=== PATIENT | female | born 1990 | race African-American/Black ===

== ENCOUNTER 2023-02-15 10:17 | Emergency (ER) | payer OTHER ==
[2023-02-15 10:22] VITALS: BP 113/51; PULSE 91; RESP 18; TEMP 98.3; BMI 26.6
[2023-02-15] MEDS ORDERED: SODIUM CHLORIDE 1,000 ML IV ONE (10:46)
[2023-02-15 11:38] LABS: BASO % 0.8 % (0-2.0); EOS % 1.7 % (0-4.5); HEMATOCRIT 20.3 % (32.4-45.2); HEMOGLOBIN 7.4 GM/dL (10.7-15.3); LYMPH % 18.2 % (8-40); MCH 30.1 pg (25.7-33.7); MCHC 36.5 g/dl (32.0-36.0); MEAN CELL VOLUME 82.7 fl (80-96); MEAN PLT VOLUME 7.1 fl (7.5-11.1); MONO % 5.6 % (3.8-10.2); NEUT % 73.7 % (42.8-82.8); PLATELET COUNT 256 10^3/uL (134-434); RBC 2.46 M/mm3 (3.60-5.2); RDW 24.2 % (11.6-15.6); WHITE BLOOD COUNT 5.7 K/mm3 (4.0-10.0)
[2023-02-15 11:43] LABS: INR 1.16 (0.83-1.09); PROTHROMBIN TIME (PATIENT) 13.4 SEC (9.7-13.0)
[2023-02-15 11:46] LABS: ACTIVATED PTT 27.8 SECONDS (25.2-36.5); POTASSIUM 3.4 mmol/L (3.5-5.1)
[2023-02-15 11:47] LABS: BLOOD UREA NITROGEN 6.5 mg/dL (7-18); CALCIUM 8.9 mg/dL (8.5-10.1)
[2023-02-15 11:51] LABS: CREATININE 0.6 mg/dL (0.55-1.3)
[2023-02-15 12:15] LABS: ANISOCYTOSIS 1+; MACROCYTOSIS 1+
== END 2023-02-15 13:00 | disposition left against medical advice (07) ==
LOC: JER 10:17
PROC: 3E0337Z Introduction of Electrolytic and Water Balance Substance into Peripheral Vein, Percutaneous Approach (ICD-10-PCS; principal; 2023-02-15)
DX: O26.892 Other specified pregnancy related conditions, second trimester (principal); R10.30 Lower abdominal pain, unspecified; Z3A.15 15 weeks gestation of pregnancy
CPT/HCPCS: 36415; 76815-TC; 80048; 84702; 84703; 85025; 85610; 85730; 86850; 86900; 86901; 99284-25